=== PATIENT | male | born 1980 | race African-American/Black ===

== ENCOUNTER 2017-05-09 10:38 | Inpatient (IN) | payer MEDICAID, OTHER ==
[~2017-05-09] VITALS: Ht 180.3 cm; Wt 92.6 kg
[2017-05-09] MEDS ORDERED: OLAN10TA3 PO (10:48)
[2017-05-09] MEDS ORDERED: DIVA500T35 PO (10:48)
[2017-05-09] MEDS ORDERED: ZIPR60CA2 PO (10:48)
[2017-05-09 11:38] LABS: BASOPHILS # (AUTO) 0.04 K/uL (0.00-0.20); BASOPHILS % (AUTO) 0.8 % (0.0-2.0); EOSINOPHILS # (AUTO) 0.08 K/uL (0.00-0.70); EOSINOPHILS % (AUTO) 1.78 % (1.0-6.0); HEMATOCRIT 45.3 % (41-53); HEMOGLOBIN 15.7 g/dL (13.5-17.5); LYMPHOCYTES % (AUTO) 21.3 % (22.0-44.0); MEAN CORPUSCULAR HEMOGLOBIN 34.5 pg (26.0-34.0); MEAN CORPUSCULAR HGB CONC 34.7 G/dL (31.0-37.0); MEAN CORPUSCULAR VOLUME 100 fL (80-100); MONOCYTES # (AUTO) 0.3 K/uL (0.1-1.0); MONOCYTES % (AUTO) 6.9 % (2.0-9.0); NEUTROPHILS # (AUTO) 3.1 K/uL (1.8-7.7); NEUTROPHILS % (AUTO) 69.2 % (40.0-70.0); PLATELET COUNT (AUTO) 214 K/uL (150-450); RED BLOOD CELL COUNT(AUTO) 4.55 MIL/uL (4.50-5.90); RED CELL DISTRIBUTION WIDTH 13.6 % (11.5-14.5); WHITE BLOOD COUNT (AUTO) 4.5 K/uL (4.5-11.0)
[2017-05-09 11:46] LABS: ANION GAP 8 mmol/L (8-16); CALCIUM, TOTAL 9.1 mg/dL (8.8-10.5); CARBON DIOXIDE 27 mmol/L (22-29); CHLORIDE 103 mmol/L (98-107); CREATININE 1.42 mg/dL (0.60-1.30); GLOMERULAR FILTR. RATE CALC > 60 mL/min (>60); SODIUM SERUM 138 mmol/L (136-145); UREA NITROGEN, BLOOD 27 mg/dL (7-18)
[2017-05-09 11:54] LABS: ALANINE AMINOTRANSFERASE 28 U/L (12-78); ALBUMIN 4.1 g/dL (3.4-5.0); ASPARTATE AMINOTRANSFERASE 28 U/L (15-37); BILIRUBIN,TOTAL 0.5 mg/dL (0.1-1.0)
[2017-05-09 11:55] LABS: VALPROIC ACID < 3 mcg/mL (50-100)
[2017-05-09] MEDS ORDERED: OLANZapine 10 MG RAPDIS TABLET PO ONE (15:45)
[2017-05-09] MEDS ORDERED: LOPERAMIDE HCL 2 MG CAPSULE PO PRN (16:30)
[2017-05-09] MEDS ORDERED: ACETAMINOPHEN 325 MG TABLET PO PRN (16:30)
[2017-05-09] MEDS ORDERED: MAGNESIUM HYDROXIDE SUSPENSION 30 ML UDCUP PO PRN (16:30)
[2017-05-09] MEDS ORDERED: HydrOXYzine PAMOATE 50 MG CAPSULE PO PRN (16:30)
[2017-05-09] MEDS ORDERED: OLANZapine 5 MG RAPDIS TABLET PO PRN (16:30)
[2017-05-09] MEDS ORDERED: TUBERCULIN, PURIFIED PROTEIN DERIVATIVE 5 TU/0.1 ML SYG ID ONE (16:30)
[2017-05-09] MEDS ORDERED: PROMETHAZINE HCL 25 MG TABLET PO PRN (16:30)
[2017-05-09] MEDS ORDERED: GuaiFENesin/D-METHORPHAN [SUGAR-FREE] 200-20MG/10 ML SYRUP UDCUP PO PRN (16:30)
[2017-05-09] MEDS ORDERED: MAG HYDROX/AL HYDROX/SIMETH ES 30 ML SUSPENSION UDCUP PO PRN (16:30)
[2017-05-09] MEDS ORDERED: ZOLPIDEM TARTRATE 10 MG TABLET PO PRN (16:30)
[2017-05-09 19:13] VITALS: BP 119/74
[2017-05-09] MEDS: DIVALPROEX SODIUM 500 MG ER TABLET PO SCH (20:15)
[2017-05-09] MEDS: THIAMINE HCL 100 MG TABLET PO SCH (20:15)
[2017-05-09] MEDS: OLANZapine 5 MG RAPDIS TABLET PO SCH (20:15)
[2017-05-10 06:35] VITALS: BP 133/67
[2017-05-10 08:46] VITALS: BP 112/78
[2017-05-10] MEDS: FOLIC ACID 1 MG TABLET PO SCH (08:50)
[2017-05-10] MEDS: MULTIVITAMINS WITH MINERALS, THERAPEUTIC TABLET PO SCH (08:50)
[2017-05-10] MEDS: THIAMINE HCL 100 MG TABLET PO SCH ×2 (08:50→17:00)
[2017-05-10] MEDS: NALTREXONE HCL 50 MG TABLET PO SCH (08:50)
[2017-05-10 09:13] LABS: BASOPHILS % (AUTO) 0.5 % (0.0-2.0); EOSINOPHILS % (AUTO) 2.8 % (1.0-6.0); HEMATOCRIT 47.1 % (41-53); HEMOGLOBIN 16.2 g/dL (13.5-17.5); LYMPHOCYTES # (AUTO) 1.8 K/uL (1.0-4.8); LYMPHOCYTES % (AUTO) 30.6 % (22.0-44.0); MEAN CORPUSCULAR HEMOGLOBIN 34.9 pg (26.0-34.0); MEAN CORPUSCULAR HGB CONC 34.3 G/dL (31.0-37.0); MEAN CORPUSCULAR VOLUME 102 fL (80-100); MONOCYTES # (AUTO) 0.3 K/uL (0.1-1.0); MONOCYTES % (AUTO) 4.7 % (2.0-9.0); NEUTROPHILS # (AUTO) 3.6 K/uL (1.8-7.7); NEUTROPHILS % (AUTO) 61.4 % (40.0-70.0); PLATELET COUNT (AUTO) 226 K/uL (150-450); RED BLOOD CELL COUNT(AUTO) 4.64 MIL/uL (4.50-5.90); RED CELL DISTRIBUTION WIDTH 13.9 % (11.5-14.5); WHITE BLOOD COUNT (AUTO) 5.8 K/uL (4.5-11.0)
[2017-05-10 09:36] LABS: RBC MORPHOLOGY COMMENT ABNORMAL RBC MORPH
[2017-05-10 09:37] LABS: HEMOGLOBIN A1C 5.6 % (4.5-6.2)
[2017-05-10 09:51] LABS: ALANINE AMINOTRANSFERASE 26 U/L (12-78); ALBUMIN 4.1 g/dL (3.4-5.0); ANION GAP 6 mmol/L (8-16); ASPARTATE AMINOTRANSFERASE 26 U/L (15-37); BILIRUBIN,TOTAL 0.5 mg/dL (0.1-1.0); CALCIUM, TOTAL 8.9 mg/dL (8.8-10.5); CARBON DIOXIDE 31 mmol/L (22-29); CHLORIDE 103 mmol/L (98-107); CHOL/HDL RATIO 3.7 (4.2-7.3); CREATININE 1.23 mg/dL (0.60-1.30); GLOMERULAR FILTR. RATE CALC > 60 mL/min (>60); POTASSIUM 4.4 mmol/L (3.5-5.1); SODIUM SERUM 140 mmol/L (136-145); THYROID STIMULATING HORMONE 1.15 uIU/mL (0.36-3.74); TOTAL PROTEIN, SERUM 8.2 g/dL (6.4-8.2); UREA NITROGEN, BLOOD 22 mg/dL (7-18)
[2017-05-10 09:53] LABS: VALPROIC ACID < 3 mcg/mL (50-100)
[2017-05-10 16:11] VITALS: BP 129/79
[2017-05-10] MEDS: DIVALPROEX SODIUM 500 MG ER TABLET PO SCH (21:00)
[2017-05-10] MEDS: OLANZapine 5 MG RAPDIS TABLET PO SCH (21:00)
[2017-05-11 06:04] VITALS: BP 124/74
[2017-05-11 08:36] VITALS: BP 105/65
[2017-05-11] MEDS: FOLIC ACID 1 MG TABLET PO SCH ×2 (09:00→09:28)
[2017-05-11] MEDS: MULTIVITAMINS WITH MINERALS, THERAPEUTIC TABLET PO SCH ×2 (09:00→09:28)
[2017-05-11] MEDS: NALTREXONE HCL 50 MG TABLET PO SCH ×2 (09:00→09:28)
[2017-05-11] MEDS: THIAMINE HCL 100 MG TABLET PO SCH ×3 (09:00→17:00)
[2017-05-11] MEDS: LORazepam 2 MG TABLET PO PRN (09:28)
[2017-05-11 16:32] VITALS: BP 122/73
[2017-05-11] MEDS: DIVALPROEX SODIUM 500 MG ER TABLET PO SCH (21:00)
[2017-05-11] MEDS: OLANZapine 5 MG RAPDIS TABLET PO SCH (21:00)
[2017-05-12] MEDS: NALTREXONE HCL 50 MG TABLET PO SCH (09:00)
[2017-05-12] MEDS: FOLIC ACID 1 MG TABLET PO SCH (09:00)
[2017-05-12] MEDS: THIAMINE HCL 100 MG TABLET PO SCH ×2 (09:00→16:34)
[2017-05-12] MEDS: MULTIVITAMINS WITH MINERALS, THERAPEUTIC TABLET PO SCH (09:00)
[2017-05-12 09:51] VITALS: BP 113/75
[2017-05-12] MEDS ORDERED: DiphenhydrAMINE HCL 50 MG/ML VIAL ONE (14:19)
[2017-05-12] MEDS ORDERED: LORazepam 2 MG/ML VIAL ONE (14:19)
[2017-05-12] MEDS ORDERED: HALOPERIDOL LACTATE 5 MG/ML VIAL ONE (14:19)
[2017-05-12] MEDS: DIVALPROEX SODIUM 500 MG ER TABLET PO SCH (21:00)
[2017-05-12] MEDS: OLANZapine 5 MG RAPDIS TABLET PO SCH (21:00)
[2017-05-13 08:33] VITALS: BP 121/76
[2017-05-13] MEDS: FOLIC ACID 1 MG TABLET PO SCH (09:00)
[2017-05-13] MEDS: MULTIVITAMINS WITH MINERALS, THERAPEUTIC TABLET PO SCH (09:00)
[2017-05-13] MEDS: NALTREXONE HCL 50 MG TABLET PO SCH (09:00)
[2017-05-13] MEDS: THIAMINE HCL 100 MG TABLET PO SCH ×2 (09:00→16:56)
[2017-05-13 16:00] VITALS: BP 123/71
[2017-05-13] MEDS: ZIPRASIDONE HCL 20 MG CAPSULE PO SCH (16:56)
[2017-05-13] MEDS: DIVALPROEX SODIUM 500 MG ER TABLET PO SCH (20:51)
[2017-05-14 05:22] VITALS: BP 126/66
[2017-05-14] MEDS: ZIPRASIDONE HCL 20 MG CAPSULE PO SCH (06:52)
[2017-05-14 08:00] VITALS: BP 121/72
[2017-05-14] MEDS: NALTREXONE HCL 50 MG TABLET PO SCH (09:00)
[2017-05-14] MEDS: THIAMINE HCL 100 MG TABLET PO SCH ×2 (09:00→17:04)
[2017-05-14] MEDS: FOLIC ACID 1 MG TABLET PO SCH (09:00)
[2017-05-14] MEDS: MULTIVITAMINS WITH MINERALS, THERAPEUTIC TABLET PO SCH (09:00)
[2017-05-14 16:00] VITALS: BP 125/70
[2017-05-14] MEDS ORDERED: ZIPRASIDONE HCL 40 MG CAPSULE PO SCH (17:00)
[2017-05-14] MEDS: DIVALPROEX SODIUM 500 MG ER TABLET PO SCH (20:55)
[2017-05-15 05:55] VITALS: BP 128/72
[2017-05-15 08:45] VITALS: BP 120/73
[2017-05-15] MEDS: THIAMINE HCL 100 MG TABLET PO SCH ×2 (09:00→16:48)
[2017-05-15] MEDS: MULTIVITAMINS WITH MINERALS, THERAPEUTIC TABLET PO SCH (09:00)
[2017-05-15] MEDS: NALTREXONE HCL 50 MG TABLET PO SCH (09:00)
[2017-05-15] MEDS: FOLIC ACID 1 MG TABLET PO SCH (09:00)
[2017-05-15 16:00] VITALS: BP 120/77
[2017-05-15] MEDS ORDERED: ZIPRASIDONE HCL 60 MG CAPSULE PO SCH (17:00)
[2017-05-16 06:20] VITALS: BP 141/83
[2017-05-16 08:29] VITALS: BP 121/66
[2017-05-16] MEDS: MULTIVITAMINS WITH MINERALS, THERAPEUTIC TABLET PO SCH (08:49)
[2017-05-16] MEDS: THIAMINE HCL 100 MG TABLET PO SCH ×2 (08:50→16:42)
[2017-05-16] MEDS: FOLIC ACID 1 MG TABLET PO SCH (08:50)
[2017-05-16] MEDS: NALTREXONE HCL 50 MG TABLET PO SCH (08:50)
[2017-05-16 16:30] VITALS: BP 115/68
[2017-05-16] MEDS ORDERED: ZIPRASIDONE HCL 80 MG CAPSULE PO SCH (17:00)
[2017-05-17 05:40] VITALS: BP 128/64
[2017-05-17 08:14] VITALS: BP 113/64
[2017-05-17] MEDS: NALTREXONE HCL 50 MG TABLET PO SCH (09:35)
[2017-05-17] MEDS: MULTIVITAMINS WITH MINERALS, THERAPEUTIC TABLET PO SCH (09:35)
[2017-05-17] MEDS: THIAMINE HCL 100 MG TABLET PO SCH ×2 (09:36→17:00)
[2017-05-17] MEDS: FOLIC ACID 1 MG TABLET PO SCH (09:36)
[2017-05-17 16:34] VITALS: BP 135/80
[2017-05-17] MEDS: ZIPRASIDONE HCL 20 MG CAPSULE PO SCH (17:00)
[2017-05-17] MEDS ORDERED: HALOPERIDOL LACTATE 5 MG/ML VIAL ONE (20:47)
[2017-05-17] MEDS ORDERED: DiphenhydrAMINE HCL 50 MG/ML VIAL ONE (20:47)
[2017-05-17] MEDS ORDERED: LORazepam 2 MG/ML VIAL ONE (20:47)
[2017-05-17] MEDS ORDERED: HALOPERIDOL LACTATE 5 MG/ML VIAL IM ONE (21:00)
[2017-05-17] MEDS ORDERED: LORazepam 2 MG/ML VIAL IM ONE (21:00)
[2017-05-17] MEDS ORDERED: DiphenhydrAMINE HCL 50 MG/ML VIAL IM ONE (21:00)
[2017-05-17 21:30] VITALS: BP 105/67
[2017-05-18 06:44] VITALS: BP 138/83
[2017-05-18] MEDS: FOLIC ACID 1 MG TABLET PO SCH (08:30)
[2017-05-18] MEDS: NALTREXONE HCL 50 MG TABLET PO SCH (08:30)
[2017-05-18] MEDS: MULTIVITAMINS WITH MINERALS, THERAPEUTIC TABLET PO SCH (08:30)
[2017-05-18] MEDS: THIAMINE HCL 100 MG TABLET PO SCH ×2 (08:30→17:28)
[2017-05-18] MEDS: LORazepam 2 MG TABLET PO PRN (08:30)
[2017-05-18 16:00] VITALS: BP 117/76
[2017-05-18] MEDS: ZIPRASIDONE HCL 20 MG CAPSULE PO SCH (17:00)
[2017-05-19 04:49] VITALS: BP 124/69
[2017-05-19 08:00] VITALS: BP 124/68
[2017-05-19] MEDS: FOLIC ACID 1 MG TABLET PO SCH (10:03)
[2017-05-19] MEDS: THIAMINE HCL 100 MG TABLET PO SCH (10:03)
[2017-05-19] MEDS: LORazepam 2 MG TABLET PO PRN (10:04)
[2017-05-19] MEDS: NALTREXONE HCL 50 MG TABLET PO SCH (10:04)
[2017-05-19] MEDS: MULTIVITAMINS WITH MINERALS, THERAPEUTIC TABLET PO SCH (10:04)
[2017-05-19 16:00] VITALS: BP 129/81
[2017-05-19] MEDS: ZIPRASIDONE HCL 20 MG CAPSULE PO SCH (17:00)
[2017-05-20 06:43] VITALS: BP 105/61
[2017-05-20 08:18] VITALS: BP 139/79
[2017-05-20] MEDS: MULTIVITAMINS WITH MINERALS, THERAPEUTIC TABLET PO SCH (09:35)
[2017-05-20] MEDS: NALTREXONE HCL 50 MG TABLET PO SCH (09:36)
[2017-05-20 16:00] VITALS: BP 129/80
[2017-05-20] MEDS: ZIPRASIDONE HCL 20 MG CAPSULE PO SCH (16:57)
[2017-05-21 06:25] VITALS: BP 125/78
[2017-05-21 08:15] VITALS: BP 111/59
[2017-05-21] MEDS ORDERED: NALTREXONE HCL 50 MG TABLET PO SCH (09:00)
[2017-05-21] MEDS: MULTIVITAMINS WITH MINERALS, THERAPEUTIC TABLET PO SCH (09:59)
[2017-05-21] MEDS: NALTREXONE HCL 50 MG TABLET PO SCH (09:59)
[2017-05-21] MEDS ORDERED: LORazepam 2 MG/ML VIAL IM ONE (14:15)
[2017-05-21] MEDS ORDERED: DiphenhydrAMINE HCL 50 MG/ML VIAL IM ONE (14:15)
[2017-05-21] MEDS ORDERED: HALOPERIDOL LACTATE 5 MG/ML VIAL IM ONE (14:15)
[2017-05-21 16:00] VITALS: BP 121/76
[2017-05-21] MEDS: ZIPRASIDONE HCL 20 MG CAPSULE PO SCH (17:37)
[2017-05-22 06:00] VITALS: BP 113/68
[2017-05-22 08:36] VITALS: BP 106/64
[2017-05-22] MEDS: NALTREXONE HCL 50 MG TABLET PO SCH (08:46)
[2017-05-22] MEDS: MULTIVITAMINS WITH MINERALS, THERAPEUTIC TABLET PO SCH (08:54)
[2017-05-22] MEDS ORDERED: ZIPRASIDONE HCL 60 MG CAPSULE PO SCH (17:00)
[2017-05-22] MEDS: LORazepam 2 MG TABLET PO PRN (17:11)
[2017-05-23 08:00] VITALS: BP 123/77
[2017-05-23] MEDS: NALTREXONE HCL 50 MG TABLET PO SCH (09:08)
[2017-05-23] MEDS: MULTIVITAMINS WITH MINERALS, THERAPEUTIC TABLET PO SCH (09:08)
[2017-05-23] MEDS ORDERED: TraMADol HCL 50 MG TABLET PO PRN (09:30)
[2017-05-23] MEDS ORDERED: ZIPR40CA2 PO (12:37)
[2017-05-23] MEDS ORDERED: NALT50TA PO (12:37)
[2017-05-23] MEDS ORDERED: ZIPR80CA2 PO (13:01)
[2017-05-23] MEDS ORDERED: ZIPRASIDONE HCL 40 MG CAPSULE PO SCH (17:00)
== END 2017-05-23 15:30 | disposition home or self-care (01) | DRG 750 ==
LOC: EEVIPCON 10:39 → EMS 10:39 → B3A 17:44
PROVIDERS: ADMIT Psychiatry & Neurology Psychiatry; ATTEND Psychiatry & Neurology Psychiatry
DX: F20.0 Paranoid schizophrenia (principal); Z91.19 Patient's noncompliance with other medical treatment and regimen; F31.9 Bipolar disorder, unspecified; F17.210 Nicotine dependence, cigarettes, uncomplicated; F12.90 Cannabis use, unspecified, uncomplicated; Z65.3 Problems related to other legal circumstances; Z68.29 Body mass index [BMI] 29.0-29.9, adult; Z79.899 Other long term (current) drug therapy
CPT/HCPCS: 83036; 84439; 84443; 86592; 99285; G0480; J1200; J1630; J2060